=== PATIENT | male | born 1970 | race American Indian/Alaskan Native ===

== ENCOUNTER 2018-10-13 22:01 | Emergency (ER) | payer SELFPAY ==
--- NOTE | 2018-10-13 22:39 | Emergency Department Report ---
Blank Doc - Documentation Documentation: This is a 48-year-old male who reported that he fell partially through his attic floor. He said he hurt his side and he is having some difficulty in breathing and this happened yesterday. He said he has some bruising to his right side. Denies any back pain or neck pain. Denies any headache or head injury. Pain is 7 out of 10 and achy and worse with movement and taking a deep breath. Denies any coughing up blood. Assessment/plan Patient vital signs are stable he is afebrile. He is in no acute distress. Lungs/chest: Left lateral and posterior thorax tenderness with minimal bruising laterally. No swelling noted. No increased work of breathing noted. This initial assessment diagnostic orders/clinical plan/treatment(s) is/are subject to change based on patient's health status, clinical progression and re- assessment by fellow clinical providers in the ED. Further treatment and workup at subsequent clinical providers discretion. Patient/guardians urged not to elope from ED s their condition may be serious if not clinically assessed and managed. Initial orders include: Labs: CBC and BMP CT scan of chest without contrast looking for lung contusion, rib fracture or pneumothorax.
[2018-10-13 22:59] LABS: BUN/Creatinine Ratio 14; Blood Urea Nitrogen 14 mg/dL (9-20); Calcium 9.1 mg/dL (8.4-10.2); Hemolysis Index 8
[2018-10-13 23:18] LABS: Basophils # (Auto) 0.2 K/mm3 (0.0-0.1); Basophils % (Auto) 2.6 % (0.0-1.8); Eosinophils % (Auto) 0.5 % (0.0-4.3); Hemoglobin 15.2 gm/dl (11.8-15.2); Lymphocytes # (Auto) 1.6 K/mm3 (1.2-5.4); Mean Corpuscular HGB Conc 35 % (32-34); Mean Corpuscular Volume 92 fl (84-94); Monocytes # (Auto) 0.5 K/mm3 (0.0-0.8); Monocytes % (Auto) 6.6 % (0.0-7.3); Platelet Count 207 K/mm3 (140-440); Red Blood Count 4.78 M/mm3 (3.65-5.03); Red Cell Distribution Width 14.1 % (13.2-15.2)
[2018-10-14] MEDS ORDERED: TYLENOL #3 PO ONE (02:45)
--- NOTE | 2018-10-14 02:49 | Emergency Department Report ---
ED Fall HPI - General Chief Complaint: Fall Stated Complaint: FALL(BACK PAIN) Time Seen by Provider: 10/13/18 22:38 Source: patient Mode of arrival: Ambulatory - History of Present Illness Initial Comments: This is a 48-year-old male who reported that he fell partially through his attic floor. He said he hurt his side and he is having some difficulty in breathing and this happened yesterday. He said he has some bruising to his right side. Denies any back pain or neck pain. Denies any headache or head injury. Pain is 7 out of 10 and achy and worse with movement and taking a deep breath. Denies any coughing up blood. MD Complaint: fall Onset/Timin -: hour(s) Fall From: from height (distance) (8 foot ) When Fall Occurred: # days [employer] (1) Fall Witnessed: yes, by family Place Fall Occurred: home Loss of Consciousness: none Prolonged Down Time?: no Symptoms Prior to Fall: none Location: back (right lateral flank rib ) Severity: moderate Severity scale (0 -10): 4 Quality: sharp Context: other (fall from ladder ) Associated Symptoms: other (flank pain with inspiration ) - Related Data Previous Rx's Medication Instructions Recorded Last Taken Type Acetaminophen/Codeine [Tylenol 1 tab PO Q6H PRN #12 tab 10/14/18 Unknown Rx /Codeine # 3 tab] Naproxen 500 mg PO BID PRN #30 tablet 10/14/18 Unknown Rx Allergies Allergy/AdvReac Type Severity Reaction Status Date / Time No Known Allergies Allergy Unverified 10/13/18 22:05 ED Review of Systems ROS: Stated complaint: FALL(BACK PAIN) Other details as noted in HPI ED Past Medical Hx - Past Medical History Hx Arthritis: No - Surgical History Past Surgical History?: Yes Additional Surgical History: Buttock - Social History Smoking Status: Never Smoker Substance Use Type: None - Medications Home Medications: Home Medications Medication Instructions Recorded Confirmed Last Taken Type Acetaminophen/Codeine [Tylenol 1 tab PO Q6H PRN #12 tab 10/14/18 Unknown Rx /Codeine # 3 tab] Naproxen 500 mg PO BID PRN #30 tablet 10/14/18 Unknown Rx ED Physical Exam - General Limitations: No Limitations General appearance: alert, in no apparent distress - Head Head exam: Present: atraumatic, normocephalic, normal inspection - Expanded Head Exam Expanded Head exam: Absent: laceration, abrasion, contusion, hematoma, racoon eyes, patten's sign, general tenderness, tenderness of temporal artery, CSF rhinorrhea, CSF otorrhea - Eye Eye exam: Present: normal appearance, PERRL, EOMI Pupils: Present: normal accommodation - ENT ENT exam: Present: normal orophraynx, mucous membranes moist, TM's normal bilaterally, normal external ear exam - Expanded ENT Exam Expanded Ear exam: Present: normal external inspection Mouth exam: Present: normal external inspection, other (no blood no swelling airway is patent ). Absent: trismus Teeth exam: Present: normal inspection Throat exam: Positive: normal inspection - Neck Neck exam: Present: normal inspection - Respiratory Respiratory exam: Present: normal lung sounds bilaterally, chest wall tenderness (right posterior lateral flank tenderness to palpation and deep inspiration). Absent: respiratory distress, wheezes, rales, rhonchi, stridor, accessory muscle use, decreased breath sounds, prolonged expiratory - Cardiovascular Cardiovascular Exam: Present: regular rate, normal rhythm, normal heart sounds. Absent: systolic murmur, diastolic murmur, rubs, gallop - GI/Abdominal GI/Abdominal exam: Present: soft, normal bowel sounds. Absent: distended, tenderness, guarding, rebound, rigid, bruit, hernia - Rectal Rectal exam: Present: deferred - Extremities Exam Extremities exam: Present: normal inspection, full ROM, normal capillary refill. Absent: tenderness - Back Exam Back exam: Present: normal inspection, full ROM, tenderness (right posterior flank , no posterior vertebral point tenderness no paraspinus muscle tenderness rom intact there is no ecchymosis no swelling no stepoff no crepitus ), rash noted. Absent: CVA tenderness (R), CVA tenderness (L), muscle spasm - Expanded Back Exam Expanded Back exam: Absent: saddle anesthesia Back exam: Negative Straight Leg Raising: Left, Right - Neurological Exam Neurological exam: Present: alert, oriented X3, CN II-XII intact, normal gait, reflexes normal - Psychiatric Psychiatric exam: Present: normal affect, normal mood - Skin Skin exam: Present: warm, dry, intact, normal color. Absent: rash ED Course Vital Signs 10/13/18 22:04 Temperature 98.7 F Pulse Rate 94 H Respiratory 18 Rate Blood Pressure 144/83 O2 Sat by Pulse 99 Oximetry ED Medical Decision Making - Lab Data Result diagrams: 10/13/18 22:29 10/13/18 22:29 - Radiology Data Radiology results: report reviewed, image reviewed agustin fax report: The lungs are clear without infiltrate, effusion, or pneumothorax, There is a slightly displaced fracture of the posterior right 12th rib. - Medical Decision Making X-ray confirms right total posterior lateral rib fracture , displaced lungs are clear throughout there is no crepitus no ecchymosis noted deformity no flail chest pain of 4/10 and is improved with Tylenol with codeine products neuro exam is normal there are no other distracting injuries patient remains alert and oriented and ambulatory with steady gait there is no acute distress this time plan DC the Tylenol with Codeine DC with naproxen patient will follow up with PCP in 2-3 days return to emergency department should symptoms worsen or develop hemoptysis shortness of breath wheezing and abnormality or swelling patient verbalizes agreement and understanding of discharge plan will be DC'd home in stable condition at this time Critical care attestation.: If time is entered above; I have spent that time in minutes in the direct care of this critically ill patient, excluding procedure time. ED Disposition Clinical Impression: Right rib fracture Qualifiers: Encounter type: initial encounter Rib fracture type: single rib Fracture type: closed Qualified Code(s): S22.31XA - Fracture of one rib, right side, initial encounter for closed fracture Disposition: DC-01 TO HOME OR SELFCARE Is pt being admited?: No Does the pt Need Aspirin: No Condition: Stable Instructions: Rib Fracture (ED) Prescriptions: Acetaminophen/Codeine [Tylenol /Codeine # 3 tab] 1 tab PO Q6H PRN #12 tab PRN Reason: pain Naproxen 500 mg PO BID PRN #30 tablet PRN Reason: pain Referrals: CARA MINOR MD [Staff Physician] - 3-5 Days NAPOLEON BATES MD [Referring] - 3-5 Days Forms: Work/School Release Form(ED) Time of Disposition: 02:58
[2018-10-14 03:17] VITALS: BP 129/85
--- NOTE | 2018-10-16 08:17 | Cat Scan Report ---
FINAL REPORT PROCEDURE: CT CHEST WO CON TECHNIQUE: Computerized axial tomography of the chest was performed without contrast material. This study is performed without intravenous contrast and the sensitivity for pathology, including neoplasm s, adenopathy, abscess, pulmonary embolism and aortic dissection, is reduced. HISTORY: fall with right rib pain COMPARISON: No prior studies are available for comparison. TECHNICAL QUALITY: Satisfactory. FINDINGS: Heart and pericardium: Normal. Thoracic aorta: Normal. Pulmonary vasculature: Normal. Lymph nodes: No enlarged thoracic lymph nodes. Lungs: Normal. Pleural space: No effusion, thickening, or pneumothorax. Musculoskeletal structures: There is a slightly displaced fracture of the posterior right 12th rib.. Upper abdominal structures: The liver, spleen and upper kidneys have normal appearance. No acute abno rmality.. IMPRESSION: The lungs are clear without infiltrate, effusion or pneumothorax. There is a slightly displaced fracture of the posterior right 12th rib..
== END 2018-10-14 03:16 | disposition home or self-care (01) ==
LOC: ED 22:01
DX: S22.31XA Fracture of one rib, right side, initial encounter for closed fracture (principal); W01.198A Fall on same level from slipping, tripping and stumbling with subsequent striking against other object, initial encounter; Y93.89 Activity, other specified; Y92.098 Other place in other non-institutional residence as the place of occurrence of the external cause; Y99.8 Other external cause status
CPT/HCPCS: 36415; 71250; 80048; 85025; 99283